=== PATIENT | female | born 1955 | race Caucasian/White ===

== ENCOUNTER 2016-08-02 16:06 | Inpatient (IN) | payer MEDICARE, MEDICAID ==
[~2016-08-02 16:06] MED LIST: ADVAIR 25028 BLISTE1 PO; ASPIRIN81 M1 PO; BACTRIM DS TAB1 EAC2 PO; HYZAAR 100-251 EACH PO; JANUMET; MOBIC7.5 M2 PO; MULTIVITAMINS1 EAC6 PO; NEURONTIN300 M1 PO
[2016-08-02] MEDS ORDERED: BACTRIM DS TAB1 EAC2 PO (16:35)
[2016-08-02 17:00] LABS: CREATININE 0.82 mg/dl (0.50-1.10); eGFR VALUE FOR BLACK 90 mL/Min
[2016-08-05] MEDS ORDERED: KEFLEX500 M4 PO (10:51)
[2016-08-05] MEDS ORDERED: NORCO 5-325 TA1 EACH PO (10:58)
== END 2016-08-05 12:02 | DRG 603 ==
LOC: EDMED 16:06 → EMR2 18:21 → CAR1 08-03 09:00
PROVIDERS: Emergency Medicine; Internal Medicine; ADMIT Hospitalist
PROC: 0H9GXZX Drainage of Left Hand Skin, External Approach, Diagnostic (ICD-10-PCS; principal; 2016-08-03)
DX: L03.114 Cellulitis of left upper limb (principal); E11.40 Type 2 diabetes mellitus with diabetic neuropathy, unspecified; I10 Essential (primary) hypertension; J44.9 Chronic obstructive pulmonary disease, unspecified; E66.9 Obesity, unspecified; F12.90 Cannabis use, unspecified, uncomplicated; M17.0 Bilateral primary osteoarthritis of knee; G89.29 Other chronic pain; Z68.38 Body mass index [BMI] 38.0-38.9, adult
CPT/HCPCS: G0378; J0133; J0696; J1170; J2270; J2405; J2930; J3370; J7030